=== PATIENT | female | born 1955 | race Caucasian/White ===

== ENCOUNTER 2018-02-26 17:27 | Emergency (ER) | payer BC, MEDICARE ==
[~2018-02-26 17:27] MED LIST: CLOP75 PO; FURO40TA PO; GLIP5 PO; JANU50TA5 PO; LISI2.5T3 PO; NAPR220T9 PO; NUCY75TA4 PO; POTA-243 PO; PRED50TA PO; RANI150 PO; ROSU20 PO; SYNT300T PO; VIMOVO PO
[2018-02-26 17:34] VITALS: BP 206/86; PULSE 87; RESP 16; TEMP 98.9; O2SAT 97
--- NOTE | 2018-02-26 17:41 | PD ---
HPI Chief Complaint: Allergic/Adverse Reaction Time Seen by Provider: 17:37 Travel History International Travel<30 days: No Contact w/Intl Traveler<30days: No Traveled to known affect area: No History of Present Illness HPI 62-year-old female complaint of facial swelling and tongue swelling. Patient states that she was bitten by a wasp this afternoon. Patient states that she started having itching and swelling on the face and the tongue after that. Patient denies any chest pain or shortness of breath. Patient states that she is allergic to Benadryl. PFSH Past Medical History Depression: Yes Diabetes: Yes Hypertension: Yes Immunizations Current: Yes ?: Not Menopausal: Yes : 4 Para: 2 Miscarriage: 1 : 1 Past Surgical History Cholecystectomy: Yes Hysterectomy: Yes Joint Replacement: Yes (LEFT KNEE 07/16/14, REPAIRED AGAIN 09/06) Tonsillectomy: Yes Other Surgery: Yes (HERNIA, BOWEL RESECTION) Social History Alcohol Use: No Tobacco Use: No Substance Use: No (States Hx experimentation or Rx'd medication only. ) Allergies-Medications (Allergen,Severity, Reaction): Coded Allergies: aspirin (Verified Allergy, Severe, STOMACH UPSET, 02/26/18) diphenhydramine (Verified Allergy, Severe, Hives, 02/26/18) iodine (Verified Allergy, Severe, Hives, 02/26/18) morphine (Verified Allergy, Severe, Itching, 02/26/18) potassium iodide (Verified Allergy, Severe, Hives, 02/26/18) povidone-iodine (Verified Allergy, Severe, Hives, 02/26/18) sodium iodide (Verified Allergy, Severe, Hives, 02/26/18) sodium iodide (Verified Allergy, Severe, Hives, 02/26/18) oxycodone (Verified Adverse Reaction, Mild, Itching, 02/26/18) Uncoded Allergies: NSAIDS (Allergy, Severe, Hives, 09/30/10) IVCTIDIN (Allergy, Unknown, 09/30/10) Reported Meds & Prescriptions Reported Meds & Active Scripts Active Zantac (Ranitidine HCl) 150 Mg Tab 150 Mg PO BID Deltasone (Prednisone) 50 Mg Tab 50 Mg PO DIRECTED 1 TAB PO DAILY X 4 DAYS, THEN 1/2 TAB PO DAILY X 4 DAYS. Reported Furosemide 40 Mg Tab 40 Mg PO EVERY OTHER DAY Janumet 50/500 (Sitagliptin Phosphate/Metformin HCl) 1 Tab Tab 1 Tab PO BID ADMINISTER WITH MEALS [Vimovo] 1 Tab PO BID K-Dur (Potassium Chloride) 10 Meq Tabcr 10 Meq PO EVERY OTHER DAY Naproxen Sodium 220 Mg Tab 220 Mg PO BID Nucynta (Tapentadol) 75 Mg Tab 75 Mg PO Q4HPRN Crestor (Rosuvastatin Calcium) 20 Mg Tab 20 Mg PO DAILY Synthroid 300 mcg (Levothyroxine Sodium) 300 Mcg Tab 600 Mcg PO DAILY Glipizide 5 Mg Tab 5 Mg PO BID Prinivil 2.5 mg (Lisinopril) 2.5 Mg Tab 5 Mg PO DAILY Plavix (Clopidogrel Bisulfate) 75 Mg Tab 75 Mg PO DAILY Review of Systems General / Constitutional: No: Fever Eyes: No: Visual changes HENT: No: Headaches Cardiovascular: No: Chest Pain or Discomfort Respiratory: No: Shortness of Breath Gastrointestinal: No: Abdominal Pain Genitourinary: No: Dysuria Musculoskeletal: No: Pain Skin: No Rash Neurologic: No: Weakness Psychiatric: No: Depression Endocrine: No: Polydipsia Hematologic/Lymphatic: No: Easy Bruising Physical Exam Narrative GENERAL: Well-nourished, well-developed patient. SKIN: Focused skin assessment warm/dry. HEAD: Normocephalic. EYES: No scleral icterus. No injection or drainage. Patient has hives over the face. Patient has edema to the tongue. No pharyngeal edema. No stridor or wheezes. NECK: Supple, trachea midline. No JVD or lymphadenopathy. CARDIOVASCULAR: Regular rate and rhythm without murmurs, gallops, or rubs. RESPIRATORY: Breath sounds equal bilaterally. No accessory muscle use. No stridor or wheezes. GASTROINTESTINAL: Abdomen soft, non-tender, nondistended. MUSCULOSKELETAL: No cyanosis, or edema. BACK: Nontender without obvious deformity. No CVA tenderness. Data Data Last Documented VS Vital Signs Date Time Temp Pulse Resp B/P (MAP) Pulse Ox O2 Delivery O2 Flow Rate FiO2 02/26/18 17:50 97 Room Air 02/26/18 17:48 85 199/82 02/26/18 17:34 98.9 16 Orders Orders Ecg Monitoring (02/26/18 17:37) Iv Access Insert/Monitor (02/26/18 17:37) Oximetry (02/26/18 17:37) Methylprednisolone So Succ Inj (Solumedr (02/26/18 17:45) Famotidine Inj (Pepcid Inj) (02/26/18 17:45) Sodium Chloride 0.9% Flush (Ns Flush) (02/26/18 17:45) Epinephrine (1:1000) Inj (Adrenalin (1:1 (02/26/18 17:45) MDM Medical Decision Making Medical Screen Exam Complete: Yes Emergency Medical Condition: Yes Differential Diagnosis Differential diagnosis including allergic reaction, anaphylactoid reaction. Narrative Course 62-year-old female with hives over the face and swelling of the tongue after bitten by a wasp. Patient is allergic to Benadryl. Epinephrine 0.3 mg IM. Solu-Medrol 125 mg IV. Pepcid 20 mg IV. 1831 PM. Patient feeling much better. Diagnosis Primary Impression: Allergic reaction Qualified Codes: T78.40XA - Allergy, unspecified, initial encounter Patient Instructions: General Instructions Additional Instructions: Prednisone, Zantac as directed. Prescription given for EpiPen as needed. Follow-up with personal physician. Return immediately if worse or shortness of breath. Med/Other Pt SpecificInfo: Prescription(s) given Scripts Epinephrine Inj (Epipen 2-Todd Inj) 0.3 Mg/0.3 Ml Pfpen 0.3 MG IM ONCE Y for ALLERGIC REACTION, #1 PACK 0 Refills Prov: Sanjay Cosby MD 02/26/18 Ranitidine (Zantac) 300 Mg Tab 300 MG PO DAILY, #10 TAB 0 Refills Prov: Sanjay Cosby MD 02/26/18 Prednisone (Prednisone) 20 Mg Tab 20 MG PO BID, #10 TAB 0 Refills Prov: Sanjay Cosby MD 02/26/18 Disposition: 01 DISCHARGE HOME Condition: Stable Sanjay Cosby MD Feb 26, 2018 17:41
[2018-02-26] MEDS ORDERED: SODIUM CHLORIDE 0.9% FLUSH 10 ML FLUSH IV FLUSH PRN (17:45)
[2018-02-26] MEDS ORDERED: EPINEPHrine HCL (1:1000) 1 MG/ML VIAL IM ONE (17:45)
[2018-02-26] MEDS ORDERED: FAMOTIDINE 20 MG/2 ML VIAL IV PUSH ONE (17:45)
[2018-02-26] MEDS ORDERED: methylPREDNISolone SOD SUCC 125 MG/2 ML VIAL IV PUSH ONE (17:45)
[2018-02-26 17:50] VITALS: O2SAT 97
[2018-02-26 18:20] VITALS: BP 151/57; PULSE 82; RESP 20; O2SAT 99
[2018-02-26] MEDS ORDERED: PRED20 PO (18:33)
[2018-02-26] MEDS ORDERED: EPIP0.3I IM (18:33)
[2018-02-26] MEDS ORDERED: ZANT300T PO (18:33)
== END 2018-02-26 18:40 | disposition home or self-care (01) ==
LOC: PHED 17:27
DX: T78.40XA Allergy, unspecified, initial encounter (principal); L50.9 Urticaria, unspecified; R22.0 Localized swelling, mass and lump, head; F32.9 Major depressive disorder, single episode, unspecified; E11.9 Type 2 diabetes mellitus without complications; I10 Essential (primary) hypertension; Z79.02 Long term (current) use of antithrombotics/antiplatelets; Z79.899 Other long term (current) drug therapy; Z88.5 Allergy status to narcotic agent
CPT/HCPCS: 96372; 96374; 96375; 99284; J0171; J2930